=== PATIENT | male | born 1980 | race Caucasian/White ===

== ENCOUNTER 2017-04-30 17:16 | Emergency (ER) | payer MEDICAID ==
[~2017-04-30] VITALS: Ht 172.7 cm; Wt 74.8 kg
--- NOTE | 2017-04-30 17:31 | NUR ---
PT REC'D TO ER C/O PAIN ABCESS TO LEFT AXILLARY 04/14 AWAITING EVALUATION BY ER PROVIDER.
--- NOTE | 2017-04-30 17:48 | NUR ---
PT TOLERATED PROCEDURE WELL DRESSING APPLIED
[2017-04-30] MEDS ORDERED: LIDOCAINE 1%-EPI 1:100,000 50 ML VIAL IJ ONE (18:00)
[2017-04-30 18:09] VITALS: BP 138/76
--- NOTE | 2017-04-30 18:10 | NUR ---
PT. VERBALIZED UNDERSTANDING OF AFTERCARE INSTRUCTIONS.Patient discharged to home in stable condition. Written and verbal after care instructions given. Patient verbalizes understanding of instruction.
== END 2017-04-30 18:10 | disposition home or self-care (01) ==
LOC: ER 17:22
DX: L02.412 Cutaneous abscess of left axilla (principal); L73.2 Hidradenitis suppurativa
CPT/HCPCS: 10060; 99283; A4606; A6403; A6407; J3490; Z7610

== ENCOUNTER 2017-05-02 08:18 | Emergency (ER) | payer MEDICAID ==
[~2017-05-02] VITALS: Ht 175.3 cm; Wt 74.8 kg
[2017-05-02 08:18] VITALS: BP 134/66
== END 2017-05-02 08:38 | disposition home or self-care (01) ==
LOC: ER 08:19
DX: L02.412 Cutaneous abscess of left axilla (principal)
CPT/HCPCS: A4606; A6402; Z7610